=== PATIENT | male | born 1965 | race Caucasian/White ===

== ENCOUNTER 2023-03-04 06:50 | Emergency (ER) | payer OTHER ==
[2023-03-04 07:02] VITALS: TEMP 97.8
[2023-03-04] MEDS ORDERED: methylPREDNISolone SOD SUCCI 125 MG/2 ML VIAL IV STA (07:38)
[2023-03-04] MEDS ORDERED: IPRATROPIUM-ALBUTEROL 3 ML NEB INHALATION STA (07:38)
--- NOTE | 2023-03-04 07:51 | ED ---
General Adult HPI - General Chief complaint: Shortness of Breath Stated complaint: Difficulty Breathing Time Seen by Provider: 03/04/23 07:00 Source: patient, EMS, RN notes reviewed, old records reviewed Mode of arrival: EMS - History of Present Illness Initial comments: This is a 57-year-old male who presents emergency department complaint of difficulty breathing. Patient states she has a history of COPD. Patient states he has not had a nebulizer in 4 days. Patient states he was up all night playing cards and he went out to have a smoke and all of a sudden he found it v gemini difficult to breathing he couldn't get over he had no nebulizer. Patient was brought in by EMS to give him one breathing treatment and he does feel better but he still feels tight. Patient states he was coughing up in the production of any sputum. Patient denies any recent fever or chills. Patient denies any chest pain or palpitations. - Related Data Previous Rx's Medication Instructions Recorded Albuterol Inhaler [Ventolin Hfa 1 - 2 puff INHALATION Q6HR PRN #2 03/04/23 Inhaler] each predniSONE [Deltasone] 40 mg PO DAILY #8 tab 03/04/23 Allergies Allergy/AdvReac Type Severity Reaction Status Date / Time Unable to Assess Allergy Verified 03/04/23 07:02 Review of Systems ROS Statement: Those systems with pertinent positive or pertinent negative responses have been documented in the HPI. ROS Other: All systems not noted in ROS Statement are negative. Past Medical History Past Medical History: COPD Past Surgical History: Unable to Obtain General Exam - General Exam Comments Initial Comments: GENERAL: Patient is well-developed and well-nourished. Patient is nontoxic and well- hydrated and is in mild distress. ENT: Neck is soft and supple. No significant lymphadenopathy is noted. Oropharynx is clear. Moist mucous membranes. Neck has full range of motion without eliciting any pain. EYES: The sclera were anicteric and conjunctiva were pink and moist. Extraocular movements were intact and pupils were equal round and reactive to light. Eyelids were unremarkable. PULMONARY: Patient has expiratory wheezing CARDIOVASCULAR: There is a regular rate and rhythm without any murmurs gallops or rubs. ABDOMEN: Soft and nontender with normal bowel sounds. SKIN: Skin is clear with no lesions or rashes and otherwise unremarkable. NEUROLOGIC: Patient is alert and oriented x3. Cranial nerves II through XII are grossly intact. Motor and sensory are also intact. Normal speech, volume and content. Symmetrical smile. MUSCULOSKELETAL: Normal extremities with adequate strength and full range of motion. LYMPHATICS: No significant lymphadenopathy is noted PSYCHIATRIC: Normal psychiatric evaluation. Course Vital Signs 03/04/23 03/04/23 03/04/23 06:50 08:08 08:20 Temperature 97.8 F Pulse Rate 95 86 90 Respiratory 24 Rate Blood Pressure 87/50 O2 Sat by Pulse 100 Oximetry 03/04/23 08:32 Temperature Pulse Rate 92 Respiratory 20 Rate Blood Pressure 113/61 O2 Sat by Pulse 98 Oximetry Medical Decision Making - Medical Decision Making EKG shows sinus rhythm at 80 bpm ME interval is 135 QRS is 90 QT interval 3 5070 QTC is 43. Patient's EKG shows no ST segment elevation or depression. Was pt. sent in by a medical professional or institution (, PA, CERTIFIED SCRUM MASTER, urgent care, hospital, or shelter...) When possible be specific @ -[No] Did you speak to anyone other than the patient for history (EMS, parent, family, police, friend...)? What history was obtained from this source @ -[No] Did you review nursing and triage notes (agree or disagree)? Why? @ -[I reviewed and agree with nursing and triage notes] Were old charts reviewed (outside hosp., previous admission, EMS record, old EKG, old radiological studies, urgent care reports/EKG's, shelter records)? Report findings @ -I reviewed old charts in prior lab work on this patient Differential Diagnosis (chest pain, altered mental status, abdominal pain women, abdominal pain men, vaginal bleeding, weakness, fever, dyspnea, syncope, headache, dizziness, GI bleed, back pain, seizure, CVA, palpatations, mental health, musculoskeletal)? @ -Differential Dyspnea: Coronary syndrome, arrhythmia, tamponade, asthma, COPD, pulmonary embolism, pneumonia, pneumothorax, pulmonary effusion, anaphylaxis, diabetic ketoacidosis, flailed chest, pulmonary contusion, diaphragmatic rupture, anemia, neuromuscular, this is not meant to be an all-inclusive list. EKG interpreted by me (3pts min.). @ -[As above] X-rays interpreted by me (1pt min.). @ -Chest x-ray shows no acute abnormality CT interpreted by me (1pt min.). @ -[None done] U/S interpreted by me (1pt. min.). @ -[None done] What testing was considered but not performed or refused? (CT, X-rays, U/S, labs)? Why? @ -[None] What meds were considered but not given or refused? Why? @ -[None] Did you discuss the management of the patient with other professionals ( professionals i.e. DrJose, PA, CERTIFIED SCRUM MASTER, lab, RT, psych nurse, administrator social welfare, coin rolling machine operator, teacher, sheriff's officer, window caser)? Give summary @ -[No] Was smoking cessation discussed for >3mins.? @ -Yes Was critical care preformed (if so, how long)? @ -[No] Were there social determinants of health that impacted care today? How? (Homelessness, low income, unemployed, alcoholism, drug addiction, tr ansportation, low edu. Level, literacy, decrease access to med. care, residential, rehab)? @ -[No] Was there de-escalation of care discussed even if they declined (Discuss DNR or withdrawal of care, Hospice)? DNR status @ -[No] What co-morbidities impacted this encounter? (DM, HTN, Smoking, COPD, CAD, Cancer, CVA, ARF, Chemo, Hep., AIDS, mental health diagnosis, sleep apnea, morbid obesity)? @ -[None] Was patient admitted / discharged? Hospital course, mention meds given and route, prescriptions, significant lab abnormalities, going to OR and other pertinent info. @ -Patient got a breathing treatment in the embolus one in the emergency department and steroids. Patient stated it helped his breathing. I listened to the patient is expiratory wheezing was much improved. Patient was becoming very hostile with staff calling them all sorts of names and demanding to leave at this point time I will be discharging patient home Undiagnosed new problem with uncertain prognosis? @ -[No] Drug Therapy requiring intensive monitoring for toxicity (Heparin, Nitro, Insulin, Cardizem)? @ -[No] Were any procedures done? @ -[No] Diagnosis/symptom? @ -COPD exacerbation Acute, or Chronic, or Acute on Chronic? @ -Acute Uncomplicated (without systemic symptoms) or Complicated (systemic symptoms)? @ -Complicated Side effects of treatment? @ -[No] Exacerbation, Progression, or Severe Exacerbation? @ -[No] Poses a threat to life or bodily function? How? (Chest pain, [place], [place], pneumonia, PE, COPD, DKA, ARF, appy, cholecystitis, CVA, Diverticulitis, Homicidal, Suicidal, threat to staff... and all critical care pts) @ -[No] - Lab Data Result diagrams: 03/04/23 07:49 03/04/23 07:49 Lab Results 03/04/23 03/04/23 03/04/23 Range/Units 07:49 07:49 07:49 WBC 7.1 (3.8-10.6) k/uL RBC 4.19 L (4.30-5.90) m/uL Hgb 14.0 (13.0-17.5) gm/dL Hct 42.0 (39.0-53.0) % MCV 100.4 H (80.0-100.0) fL MCH 33.5 (25.0-35.0) pg MCHC 33.3 (31.0-37.0) g/dL RDW 13.3 (11.5-15.5) % Plt Count 205 (150-450) k/uL MPV 8.1 Neutrophils % 45 % Lymphocytes % 39 % Monocytes % 6 % Eosinophils % 6 % Basophils % 1 % Neutrophils # 3.2 (1.3-7.7) k/uL Lymphocytes # 2.8 (1.0-4.8) k/uL Monocytes # 0.4 (0-1.0) k/uL Eosinophils # 0.5 (0-0.7) k/uL Basophils # 0.0 (0-0.2) k/uL PT 9.4 (9.0-12.0) sec INR 0.9 (<1.2) APTT 25.5 (22.0-30.0) sec Sodium 141 (137-145) mmol/L Potassium 3.9 (3.5-5.1) mmol/L Chloride 110 H (98-107) mmol/L Carbon Dioxide 24 (22-30) mmol/L Anion Gap 7 mmol/L BUN 11 (9-20) mg/dL Creatinine 0.91 (0.66-1.25) mg/dL Est GFR (CKD-EPI)AfAm >90 (>60 ml/min/1.73 sqM) Est GFR (CKD-EPI)NonAf >90 (>60 ml/min/1.73 sqM) Glucose 102 H (74-99) mg/dL Plasma Lactic Acid Rasta (0.7-2.0) mmol/L Calcium 8.4 (8.4-10.2) mg/dL Magnesium 2.2 (1.6-2.3) mg/dL Total Bilirubin 0.2 (0.2-1.3) mg/dL AST 20 (17-59) U/L ALT 16 (4-49) U/L Alkaline Phosphatase 62 (38-126) U/L Troponin I (0.000-0.034) ng/mL Total Protein 6.1 L (6.3-8.2) g/dL Albumin 3.6 (3.5-5.0) g/dL 03/04/23 03/04/23 Range/Units 07:49 07:49 WBC (3.8-10.6) k/uL RBC (4.30-5.90) m/uL Hgb (13.0-17.5) gm/dL Hct (39.0-53.0) % MCV (80.0-100.0) fL MCH (25.0-35.0) pg MCHC (31.0-37.0) g/dL RDW (11.5-15.5) % Plt Count (150-450) k/uL MPV Neutrophils % % Lymphocytes % % Monocytes % % Eosinophils % % Basophils % % Neutrophils # (1.3-7.7) k/uL Lymphocytes # (1.0-4.8) k/uL Monocytes # (0-1.0) k/uL Eosinophils # (0-0.7) k/uL Basophils # (0-0.2) k/uL PT (9.0-12.0) sec INR (<1.2) APTT (22.0-30.0) sec Sodium (137-145) mmol/L Potassium (3.5-5.1) mmol/L Chloride (98-107) mmol/L Carbon Dioxide (22-30) mmol/L Anion Gap mmol/L BUN (9-20) mg/dL Creatinine (0.66-1.25) mg/dL Est GFR (CKD-EPI)AfAm (>60 ml/min/1.73 sqM) Est GFR (CKD-EPI)NonAf (>60 ml/min/1.73 sqM) Glucose (74-99) mg/dL Plasma Lactic Acid Rasta 1.3 (0.7-2.0) mmol/L Calcium (8.4-10.2) mg/dL Magnesium (1.6-2.3) mg/dL Total Bilirubin (0.2-1.3) mg/dL AST (17-59) U/L ALT (4-49) U/L Alkaline Phosphatase (38-126) U/L Troponin I <0.012 (0.000-0.034) ng/mL Total Protein (6.3-8.2) g/dL Albumin (3.5-5.0) g/dL Disposition Clinical Impression: Acute exacerbation of chronic obstructive pulmonary disease Disposition: HOME SELF-CARE Condition: Good Instructions (If sedation given, give patient instructions): COPD (Chronic Obstructive Pulmonary Disease) (ED) Prescriptions: predniSONE [Deltasone] 40 mg PO DAILY #8 tab Albuterol Inhaler [Ventolin Hfa Inhaler] 1 - 2 puff INHALATION Q6HR PRN #2 each PRN Reason: Difficulty breathing Is patient prescribed a controlled substance at d/c from ED?: No Referrals: None,Stated [Primary Care Provider] - 1-2 days Time of Disposition: 09:25
[2023-03-04 08:27] LABS: Basophils % (A) 1 %; Eosinophils # (A) 0.5 k/uL (0-0.7); Eosinophils % (A) 6 %; Lymphocytes # (A) 2.8 k/uL (1.0-4.8); Lymphocytes % (A) 39 %; MCH 33.5 pg (25.0-35.0); MCHC 33.3 g/dL (31.0-37.0); MCV 100.4 fL (80.0-100.0); Mean Platelet Volume 8.1; Monocytes # (A) 0.4 k/uL (0-1.0); Monocytes % (A) 6 %; Neutrophils # (A) 3.2 k/uL (1.3-7.7); Neutrophils % (A) 45 %; Platelet Count 205 k/uL (150-450); RBC 4.19 m/uL (4.30-5.90); RDW 13.3 % (11.5-15.5); WBC 7.1 k/uL (3.8-10.6)
[2023-03-04 08:38] LABS: INR 0.9 (<1.2); Partial Thromboplastin Time 25.5 sec (22.0-30.0); Prothrombin Time 9.4 sec (9.0-12.0)
[2023-03-04 08:40] VITALS: BP 113/61; PULSE 92; RESP 20
[2023-03-04 08:47] LABS: ALT 16 U/L (4-49); AST 20 U/L (17-59); African American GFR (CKD) >90 (>60 ml/min/1.73 sqM); Albumin 3.6 g/dL (3.5-5.0); Alkaline Phosphatase 62 U/L (38-126); Anion Gap 7 mmol/L; Blood Urea Nitrogen 11 mg/dL (9-20); Calcium 8.4 mg/dL (8.4-10.2); Carbon Dioxide 24 mmol/L (22-30); Chloride 110 mmol/L (98-107); Glucose 102 mg/dL (74-99); Magnesium 2.2 mg/dL (1.6-2.3); Non-African American GFR(CKD) >90 (>60 ml/min/1.73 sqM); Potassium 3.9 mmol/L (3.5-5.1); Sodium 141 mmol/L (137-145); Total Bilirubin 0.2 mg/dL (0.2-1.3); Total Protein 6.1 g/dL (6.3-8.2)
--- NOTE | 2023-03-04 08:55 | XR ---
EXAMINATION TYPE: XR chest 2V DATE OF EXAM: 03/04/2023 COMPARISON: NONE HISTORY: Shortness of breath TECHNIQUE: Frontal and lateral views of the chest are obtained. FINDINGS: Scattered senescent parenchymal changes noted. Hyperinflation compatible with COPD. No evidence for infiltrate. No evidence for atelectasis. Heart size is stable. Mediastinal structures are stable and grossly unremarkable. No evidence for hilar prominence. Degenerative changes dorsal spine. IMPRESSION: 1. No evidence for acute pulmonary disease.
== END 2023-03-04 09:34 | disposition home or self-care (01) ==
LOC: EC 06:50
DX: J44.1 Chronic obstructive pulmonary disease with (acute) exacerbation (principal)
CPT/HCPCS: 36415; 93005; 80053; 83605; 83735; 84484; 85025; 85610; 85730; 87040; 71046; 99285; 96374; J2930

== ENCOUNTER 2024-12-26 21:33 | Observation (INO) | payer OTHER ==
[2024-12-26] MEDS: LORazepam 1 MG/0.5 ML VIAL IM STA (22:19)
[2024-12-26] MEDS: HALOPERIDOL LACTATE 5 MG/ML 1 ML VIAL IM STA (22:19)
--- NOTE | 2024-12-26 23:22 | ED ---
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 The patient had reportedly made suicidal statements to his partner and then she had observed him with a cord wrapped around his neck. 911 was called and the first responders bring the patient for evaluation. The patient is completely not forthcoming with me. He states that he woke up and police had broken into his home and were bringing him here against his will. (Alex Gonzalez) - Related Data Previous Rx's Medication Instructions Recorded Albuterol Inhaler [Ventolin Hfa 1 - 2 puff INHALATION Q6HR PRN #2 03/04/23 Inhaler] each predniSONE [Deltasone] 40 mg PO DAILY #8 tab 03/04/23 Allergies Allergy/AdvReac Type Severity Reaction Status Date / Time Unable to Assess Allergy Verified 03/04/23 07:02 Review of Systems ROS Other: All systems not noted in ROS Statement are negative. Limitations: ROS unobtainable due to patients medical condition (Patient is uncooperative) <CarlosAlex - Last Filed: 12/26/24 22:47> ROS Other: All systems not noted in ROS Statement are negative. <Nain Garcia - Last Filed: 12/27/24 05:17> ROS Statement: Those systems with pertinent positive or pertinent negative responses have been documented in the HPI. Past Medical History Past Medical History: COPD History of Any Multi-Drug Resistant Organisms: None Reported Past Surgical History: Unable to Obtain Past Psychological History: Unable to Obtain Smoking Status: Unknown if ever smoked Past Alcohol Use History: Abuse Past Drug Use History: Unable to Obtain <CarlosAlex - Last Filed: 12/26/24 22:47> General Exam Limitations: no limitations General appearance: alert, in no apparent distress, other (Angry and uncooperative) Head exam: Present: atraumatic, normocephalic Eye exam: Present: normal appearance Neck exam: Present: full ROM. Absent: tenderness Respiratory exam: Present: normal lung sounds bilaterally. Absent: respiratory distress, wheezes, rales, rhonchi, stridor, accessory muscle use Cardiovascular Exam: Present: regular rate, normal rhythm, normal heart sounds. Absent: systolic murmur, diastolic murmur, rubs, gallop GI/Abdominal exam: Present: soft. Absent: tenderness, guarding, rebound Extremities exam: Present: normal inspection, normal capillary refill Back exam: Present: normal inspection Neurological exam: Present: alert, normal gait. Absent: motor sensory deficit Psychiatric exam: Present: suicidal ideation, other (Patient is angry and uncooperative) Skin exam: Present: warm, dry, intact, normal color. Absent: rash <Alex Gonzalez - Last Filed: 12/26/24 22:47> Course Vital Signs 12/26/24 12/27/24 21:34 04:44 Pulse Rate 97 95 Respiratory 19 18 Rate Blood Pressure 118/93 107/64 O2 Sat by Pulse 99 95 Oximetry Medical Decision Making <Nain Garcia - Last Filed: 12/27/24 05:17> - Medical Decision Making Was pt. sent in by a medical professional or institution (TE[facility]ford, CONSULTING PROPERTY MANAGER, urgent care, hospital, or group home...) When possible be specific @ -No Did you speak to anyone other than the patient for history (EMS, parent, family, police, friend...)? What history was obtained from this source @ -No Did you review nursing and triage notes (agree or disagree)? Why? @ -I reviewed and agree with nursing and triage notes Were old charts reviewed (outside hosp., previous admission, EMS record, old EKG, old radiological studies, urgent care reports/EKG's, group home records)? Report findings @ -No old charts were reviewed Differential Mental Health Depression, anxiety, bipolar, psychosis, schizophrenia, borderline personality, situational depression, adjustment disorder, behavioral disorder, brain tumor, malingering, substance abuse, encephalopathy, medication reaction, dementia, hypothyroidism, degenerative neurologic disorder, lupus.... This is not meant to be all-inclusive list EKG interpreted by me (3pts min.). @Sinus rhythm rate of 87, MT interval 168, QRS duration 93, QTc [address] segment elevation X-rays interpreted by me (1pt min.). @ -None done CT interpreted by me (1pt min.). @ -None done U/S interpreted by me (1pt. min.). @ -None done What testing was considered but not performed or refused? (CT, X-rays, U/S, labs)? Why? @ -None What meds were considered but not given or refused? Why? @ -None Did you discuss the management of the patient with other professionals (professionals i.e. , PA, CONSULTING PROPERTY MANAGER, lab, RT, psych nurse, social media sr strategy manager, infrastructure director, teacher, special technical operations officer, case resource manager)? Give summary @ -No Was smoking cessation discussed for >3mins.? @ -No Was critical care preformed (if so, how long)? @ -No Were there social determinants of health that impacted care today? How? (Homelessness, low income, unemployed, alcoholism, drug addiction, transportation, low edu. Level, literacy, decrease access to med. care, fpc, rehab)? @ -No Was there de-escalation of care discussed even if they declined (Discuss DNR or withdrawal of care, Hospice)? DNR status @ -No What co-morbidities impacted this encounter? (DM, HTN, Smoking, COPD, CAD, Cancer, CVA, ARF, Chemo, Hep., AIDS, mental health diagnosis, sleep apnea, mo rbid obesity)? @ -Alcohol abuse. Was patient admitted / discharged? Hospital course, mention meds given and route, prescriptions, significant lab abnormalities, going to OR and other pertinent info. @ -Patient care signed out at shift change awaiting sobriety and EPS evaluation for suicidal ideations and statements. Patient has been petitioned. While awaiting sobriety the patient does become diaphoretic and tremulous. Suspect alcohol withdrawal. Patient is medically admitted for alcohol withdraw, IV is established, IV Ativan is given, laboratory test including CBC, CMP and magnesium are pending. Patient admitted to internal medicine with psychiatry on consult. Undiagnosed new problem with uncertain prognosis? @ -No Drug Therapy requiring intensive monitoring for toxicity (Heparin, Nitro, Insulin, Cardizem)? @ -No Were any procedures done? @ -No Diagnosis/symptom? @ -Alcohol withdrawal, suicidal Acute, or Chronic, or Acute on Chronic? @ -[Acute on chronic Uncomplicated (without systemic symptoms) or Complicated (systemic symptoms)? @ -Default Side effects of treatment? @ -No Exacerbation, Progression, or Severe Exacerbation? @ -No Poses a threat to life or bodily function? How? (Chest pain, [place], [place], pneumonia, PE, COPD, DKA, ARF, appy, cholecystitis, CVA, Diverticulitis, Homicidal, Suicidal, threat to staff... and all critical care pts) @ -[Yes, DTs, alcohol withdrawal seizure (Nain Garcia) - Lab Data Lab Results 12/27/24 Range/Units 05:11 POC Glucose (mg/dL) 69 L (70-110) mg/dL POC Glu Nutrition Faculty Member ID Rudy Gasca Disposition <Alex Gonzalez - Last Filed: 12/26/24 22:47> Is patient prescribed a controlled substance at d/c from ED?: No Time of Disposition: 05:02 <Nain Garcia - Last Filed: 12/27/24 05:17> Clinical Impression: Alcoholic intoxication, Alcohol withdrawal syndrome, Suicidal ideations Disposition: ADMITTED IP TO THIS HOSP Condition: Stable Referrals: None,Stated [Primary Care Provider] - 1-2 days
[2024-12-27] MEDS ORDERED: LORazepam 1 MG/0.5 ML VIAL IV PRN ×3 (05:00)
[2024-12-27] MEDS ORDERED: NALOXONE 0.4 MG/ML 1 ML VIAL IV PRN (05:00)
[2024-12-27] MEDS: THIAMINE 100 MG/ML 2 ML VIAL IM STA (05:09)
[2024-12-27] MEDS: LORazepam 1 MG/0.5 ML VIAL IV STA (05:10)
[2024-12-27 05:12] LABS: Glucose,Whole Blood 69 mg/dL (70-110)
[2024-12-27] MEDS: SODIUM CHLORIDE 0.9% 1,000 ML IV SCH (05:14)
[2024-12-27 05:28] LABS: Basophils # (A) 0.06 10*3/uL (0.00-0.10); Basophils % (A) 0.5 %; Eosinophils # (A) 0.26 10*3/uL (0.04-0.35); Eosinophils % (A) 2.3 %; HCT 39.4 % (39.6-50.0); HGB 13.5 g/dL (13.0-17.0); Lymphocytes # (A) 4.68 10*3/uL (0.90-5.00); Lymphocytes % (A) 40.7 %; MCH 32.5 pg (27.0-32.0); MCHC 34.3 g/dL (32.0-37.0); MCV 94.9 fL (80.0-97.0); Monocytes # (A) 0.78 10*3/uL (0.20-1.00); Monocytes % (A) 6.8 %; Neutrophils # (A) 5.69 10*3/uL (1.80-7.70); Neutrophils % (A) 49.5 %; Platelet Count 182 10*3/uL (140-440); RBC 4.15 10*6/uL (4.40-5.60); RDW 13.8 % (11.5-14.5); WBC 11.49 10*3/uL (4.50-10.00)
[2024-12-27 05:54] LABS: Glucose,Whole Blood 64 mg/dL (70-110)
[2024-12-27 06:58] LABS: Glucose,Whole Blood 51 mg/dL (70-110)
[2024-12-27] MEDS: DEXTROSE 50% SYRINGE 50 ML IVP STA ×2 (07:04→11:31)
[2024-12-27 07:08] LABS: ALT 15 U/L (4-49); African American GFR (CKD) >90 (>60 ml/min/1.73 sqM); Albumin 3.9 g/dL (3.5-5.0); Anion Gap 11 mmol/L; Blood Urea Nitrogen 12 mg/dL (9-20); Calcium 8.6 mg/dL (8.4-10.2); Carbon Dioxide 23 mmol/L (22-30); Chloride 109 mmol/L (98-107); Non-African American GFR(CKD) >90 (>60 ml/min/1.73 sqM); Sodium 143 mmol/L (137-145); Total Protein 6.3 g/dL (6.3-8.2)
[2024-12-27 07:14] LABS: AST 41 U/L (17-59); Alkaline Phosphatase 63 U/L (38-126); Glucose 49 mg/dL (74-99); Magnesium 2.1 mg/dL (1.6-2.3); Potassium 4.9 mmol/L (3.5-5.1)
[2024-12-27 07:43] LABS: Glucose,Whole Blood 173 mg/dL (70-110)
[2024-12-27 11:26] LABS: Glucose,Whole Blood 49 mg/dL (70-110)
[2024-12-27 11:54] LABS: Glucose,Whole Blood 180 mg/dL (70-110)
[2024-12-27 11:56] LABS: Glucose,Whole Blood 169 mg/dL (70-110)
[2024-12-27 12:12] LABS: Glucose,Whole Blood 169 mg/dL (70-110)
[2024-12-27] MEDS: DEXTROSE 5% IN WATER 1,000 ML IV SCH (12:51)
--- NOTE | 2024-12-27 13:59 | P.CN ---
Psychiatric Consult - . Consult date: 12/27/24 Consult:: 12/27/24 13:55 IDENTIFYING DATA: This patient is a 59-year-old male, living with a friend, employed REASON FOR REFERRAL: Psychiatry was consulted for alcohol/SI HISTORY OF PRESENT ILLNESS: The patient presented to the hospital with alcohol intoxication. Patient reportedly made suicidal statements to his girlfriend and then wrapped a cord around his neck. Patient is currently on CIWA. Patient was somnolent however was arousable. He states being at this hospital due to trouble breathing. He did not recall making suicidal statements however did admit to drinking 8 beers however states this is not daily. He denied any withdrawal symptoms. He states he has gone to rehab once and is not interested at this time as he does not have a problem. He denied any DUIs however he also states he does not have a car. He denied any past psych history. At this time patient denies any suicidal or homicidal ideations, intent or plan. Patient denies any auditory, visual hallucinations and denies any paranoia or delusions. Patients admits to using alcohol up to 8 beers however not daily, nicotine. PAST PSYCHIATRIC HISTORY: Patient has no past psych history. Patient denies being on any psychiatric medications. Patient denies any previous psychiatric hospitalizations. Patient denies any psychiatric outpatient follow-up. Patient denies any history of suicide attempts in the past. PAST MEDICAL HISTORY: COPD. ALLERGIES: as per EMR. CHEMICAL DEPENDENCY HISTORY: as per HPI. FAMILY PSYCHIATRIC/SUBSTANCE USE HISTORY: Denies SOCIAL HISTORY: Patient lives with his girlfriend and has children. He is employed, completed high school. MENTAL STATUS EXAM: General Appearance: Patient appears to be stated age is fatigued but overall cooperative. Patient appears to have poor hygiene and grooming wearing hospital gown with poor eye contact. Behavior: Patient is calmly lying in bed without any agitated behavior. Speech: Patient's speech is fluent and nonpressured. Mood/Affect: Patient reports their mood is "okay", affect is congruent Suicidality/Homicidality: Patient denies having any suicidal or homicidal ideation intent or plan. Perceptions: Patient denies any visual hallucinations and denies any auditory hallucinations Though content/process: There is no evidence of any delusional thought content and thought process is linear and goal-directed. Memory and concentration: AOX3, grossly intact for the purposes of this session. Can spell "WORLD" backwards Judgment and insight: Poor IMPRESSIONS: Alcohol use disorder, severe in withdrawal Nicotine dependence PLAN: -At this time patient DOES NOT meet criteria for inpatient psychiatric admission. -Would recommend the following medication changes/additions: Will start multivitamins, thiamine and folic acid -[facility] protocol with PRN Ativan for alcohol withdrawal. Continue to monitor vital signs. -Can discontinue 1:1 sitter at this time as patient is not currently an imminent threat to themselves -Therapy Tech spoke with patient about substance abuse and the harmful effects on medical and mental health, patient verbally understood and agreed. -jewelry bench worker to provide patient substance use treatment resources including AA/NA meetings in the community. -Communicated plan to patient's nurse -Psychiatry will sign off at this time -Please contact with any questions.
--- NOTE | 2024-12-27 14:36 | P.HPIM ---
History of Present Illness H&P Date: 12/27/24 History of present illness; patient 59-year-old gentleman with past medical history significant for COPD presents the ER for suicidal ideation and alcohol detox. Patient had made suicidal statements to his partner and was seen with a cord Around his neck. Patient denies any auditory or visual hallucination. Patient denies any homicidal thoughts. There was no complaint of chest pain. There was no complaint of orthopnea or PND. There is no complaint of shortness of breath. Patient denies any palpitation. Denies any nausea, vomiting abdominal pain. Patient denies any complaint of dizziness. There is no complaint of headache. Initial lab work done in the ER showed WBC 9.19, hemoglobin 13.5, platelet count 182, sodium 143, potassium 4.8, BUN 12, creatinine 0.89, glucose 49, calcium 8 .6, magnesium 2.1, bilirubin 0.5, AST 41, ALT 15, Patient admitted to internal medicine service REVIEW OF SYSTEMS: Review of system cannot be obtained as patient is not very forthcoming in answering questions PHYSICAL EXAMINATION: GENERAL: The patient is alert self and place, not in any acute distress. Well developed, well nourished. HEENT: Pupils are round and equally reacting to light. EOMI. No scleral icterus. No conjunctival pallor. Normocephalic, atraumatic. No pharyngeal erythema. No thyromegaly. CARDIOVASCULAR: S1 and S2 present. No murmurs, rubs, or gallops. PULMONARY: Chest is clear to auscultation, no wheezing or crackles. ABDOMEN: Soft, nontender, nondistended, normoactive bowel sounds. No palpable organomegaly. MUSCULOSKELETAL: No joint swelling or deformity. EXTREMITIES: No cyanosis, clubbing, or pedal edema. NEUROLOGICAL: Gross neurological examination did not reveal any focal deficits. SKIN: No rashes. Assessment and plan Suicidal attempt Hypoglycemia Alcohol abuse Pending alcohol detox History of COPD Monitor vital signs Monitor CBC Monitor CMP Elopement precaution Suicide precaution Ordered CIWA protocol Ordered symptom triggered Ativan therapy Start D5W infusion Continue high-dose thiamine folic acid Psych consulted Labs and medication were reviewed.. Continue same treatment. Continue with symptomatic treatment. Resume home medication. Monitor labs and vitals. DVT and GI prophylaxis. Further recommendations as per clinical course of the patient Dictation was produced using [employer] software. please excuse any grammatical, word or spelling errors. Past Medical History Past Medical History: COPD History of Any Multi-Drug Resistant Organisms: None Reported Past Surgical History: Unable to Obtain Past Psychological History: Unable to Obtain Smoking Status: Unknown if ever smoked Past Alcohol Use History: Abuse Past Drug Use History: Unable to Obtain Medications and Allergies Home Medications Medication Instructions Recorded Confirmed Type Unable To Assess [Unable to Assess] 12/27/24 12/27/24 History Allergies Allergy/AdvReac Type Severity Reaction Status Date / Time Unable to Assess Allergy Verified 03/04/23 07:02 Physical Exam Vitals: Vital Signs Pulse Resp BP Pulse Ox 12/27/24 06:55 76 20 92/56 95 12/27/24 05:58 76 19 93/58 92 L 12/27/24 05:27 85 20 101/67 92 L 12/27/24 04:44 95 18 107/64 95 12/26/24 21:34 97 19 118/93 99 Intake and Output 12/26/24 12/27/24 12/27/24 22:59 06:59 14:59 Other: Weight 63.503 kg Results CBC & Chem 7: 12/27/24 05:12 12/27/24 06:32 Labs: Abnormal Lab Results - Last 24 Hours (Table) 12/27/24 12/27/24 12/27/24 Range/Units 05:11 05:12 05:53 WBC 11.49 H (4.50-10.00) 10*3/uL RBC 4.15 L (4.40-5.60) 10*6/uL Hct 39.4 L (39.6-50.0) % MCH 32.5 H (27.0-32.0) pg Chloride (98-107) mmol/L Glucose (74-99) mg/dL POC Glucose (mg/dL) 69 L 64 L (70-110) mg/dL 12/27/24 12/27/24 12/27/24 Range/Units 06:32 06:54 07:42 WBC (4.50-10.00) 10*3/uL RBC (4.40-5.60) 10*6/uL Hct (39.6-50.0) % MCH (27.0-32.0) pg Chloride 109 H (98-107) mmol/L Glucose 49 L* (74-99) mg/dL POC Glucose (mg/dL) 51 L 173 H (70-110) mg/dL
[2024-12-27] MEDS: FOLIC ACID 1 MG TAB PO SCH (15:03)
[2024-12-27] MEDS: MULTIVITAMINS, THERA 1 EACH TAB PO SCH (15:03)
[2024-12-27 16:00] LABS: Glucose,Whole Blood 81 mg/dL (70-110)
[2024-12-27 17:03] VITALS: BP 150/84; PULSE 92; RESP 17; TEMP 98.2
--- NOTE | 2024-12-27 19:41 | P.DS ---
Providers Date of admission: 12/27/24 05:00 Expected date of discharge: 12/27/24 Attending physician: Joseluis Mora Consults: 12/27/24 05:01 Consult Physician Routine Consulting Provider: Psychiatry - [facility] Psychiatry Consult Reason/Comments: SI/ETOH Do you want consulting provider notified?: Already Contacted Primary care physician: Stated None Hospital Course: Final diagnosis Suicidal attempt Hypoglycemia Alcohol abuse Pending alcohol detox History of COPD Discharge disposition Patient has decided to leave AGAINST MEDICAL ADVICE. Risk versus benefits were explained and patient signed paperwork and left with girlfriend. Total time taken is greater than 35 minutes. Hospital course This patient is a 59-year-old gentleman with past medical history significant for COPD presents the ER for suicidal ideation and alcohol detox. Patient had made suicidal statements to his partner and was seen with a cord Around his neck. Patient denies any auditory or visual hallucination. Patient denies any homicidal thoughts. There was no complaint of chest pain. There was no complaint of orthopnea or PND. There is no complaint of shortness of breath. Patient denies any palpitation. Denies any nausea, vomiting abdominal pain. Patient denies any complaint of dizziness. There is no complaint of headache. Initial lab work done in the ER showed WBC 9.19, hemoglobin 13.5, platelet count 182, sodium 143, potassium 4.8, BUN 12, creatinine 0.89, glucose 49, calcium 8.6, magnesium 2.1, bilirubin 0.5, AST 41, ALT 15, Patient admitted to internal medicine service Patient arrived to the unit from the ER was evaluated by psychiatry not meeting inpatient criteria and cleared by psychiatry recommending outpatient follow-up with [facility]. Per nursing staff patient decided to leave AGAINST MEDICAL ADVICE and risk versus benefits including were explained and patient signed the paperwork. Patient walked with steady gait off of the unit with his belongings. Patient girlfriend was present. Please refer to psychiatry notes for further HPI. PHYSICAL EXAMINATION: GENERAL: The patient is alert self and place, not in any acute distress. Well developed, well nourished. HEENT: Pupils are round and equally reacting to light. EOMI. No scleral icterus. No conjunctival pallor. Normocephalic, atraumatic. No pharyngeal erythema. No thyromegaly. CARDIOVASCULAR: S1 and S2 present. No murmurs, rubs, or gallops. PULMONARY: Chest is clear to auscultation, no wheezing or crackles. ABDOMEN: Soft, nontender, nondistended, normoactive bowel sounds. No palpable organomegaly. MUSCULOSKELETAL: No joint swelling or deformity. EXTREMITIES: No cyanosis, clubbing, or pedal edema. NEUROLOGICAL: Gross neurological examination did not reveal any focal deficits. SKIN: No rashes. The impression and plan of care has been dictated by Denice Bailon, Nurse Practitioner as directed. Dr. Jarad Thomas MD I have performed a history and examination and MDM of this patient, discussed the same with the dictator, and agree with the dictator's assessment and plan as written ,documented as a scribe. Based on total visit time, I have performed more than 50% of the visit. Patient Condition at Discharge: Fair Plan - Discharge Summary New Discharge Prescriptions: No Action Unable To Assess [Unable to Assess] Discharge Medication List Unable To Assess [Unable to Assess] 12/27/24 [History] Follow up Appointment(s)/Referral(s): None,Stated [Primary Care Provider] - 1-2 days Discharge/Stand Alone Forms: AA Meetings Gatito Moya, [facility] Resources, Personal District Agent, Area PCPs Discharge Disposition: LEFT AGAINST MEDICAL ADVICE
[2024-12-28] MEDS ORDERED: THIAMINE 100 MG TAB PO SCH (09:00)
== END 2024-12-27 16:53 | disposition left against medical advice (07) ==
LOC: EC 21:33 → 3SCARD 12-27 05:00
PROVIDERS: ADMIT Hospitalist; ATTEND Hospitalist
DX: T14.91XA Suicide attempt, initial encounter (principal); F10.239 Alcohol dependence with withdrawal, unspecified; F10.229 Alcohol dependence with intoxication, unspecified; J44.9 Chronic obstructive pulmonary disease, unspecified; E16.2 Hypoglycemia, unspecified; F17.200 Nicotine dependence, unspecified, uncomplicated; X83.8XXA Intentional self-harm by other specified means, initial encounter; Z53.29 Procedure and treatment not carried out because of patient's decision for other reasons
CPT/HCPCS: 96376; 82075; 96365; 96366; 96372; 96374; 96375; 99285; 36415; 93005; 80053; 83735; 85025; G0378; J2060 ×2; J1630; J3411